=== PATIENT | female | born 1955 | race Caucasian/White ===

== ENCOUNTER 2017-05-24 08:22 | Outpatient (CLI) | payer OTHER ==
[~2017-05-24] VITALS: Ht 121.9 cm; Wt 69.4 kg
[~2017-05-24 08:22] MED LIST: DOLOGEN CAPLET1 EACH PO; MEDROL4 MG PO; PROVENTIL HFA6.7 GM IH; SINGULAIR10 MG PO
== END 2017-05-24 08:45 | disposition home or self-care (01) ==
LOC: OFIC 805 08:22
DX: H60.8X3 Other otitis externa, bilateral (principal); H93.13 Tinnitus, bilateral; H90.3 Sensorineural hearing loss, bilateral

== ENCOUNTER 2017-06-28 08:41 | Outpatient (CLI) | payer OTHER ==
[~2017-06-28] VITALS: Ht 121.9 cm; Wt 69.4 kg
== END 2017-06-28 09:00 | disposition home or self-care (01) ==
LOC: OFIC 805 08:41
DX: H60.8X3 Other otitis externa, bilateral (principal)

== ENCOUNTER 2018-05-02 07:45 | Outpatient (CLI) | payer OTHER ==
[~2018-05-02] VITALS: Ht 121.9 cm; Wt 69.4 kg
== END 2018-05-02 08:00 | disposition home or self-care (01) ==
LOC: OFIC 805 07:45
DX: H90.3 Sensorineural hearing loss, bilateral (principal); H93.13 Tinnitus, bilateral; H60.8X3 Other otitis externa, bilateral; H61.23 Impacted cerumen, bilateral

== ENCOUNTER 2018-05-30 09:38 | Outpatient (CLI) | payer OTHER ==
[~2018-05-30] VITALS: Ht 121.9 cm; Wt 68.0 kg
== END 2018-05-30 10:00 | disposition home or self-care (01) ==
LOC: OFIC 805 09:38
DX: H60.8X3 Other otitis externa, bilateral (principal)

== ENCOUNTER 2022-05-24 07:21 | Outpatient (CLI) | payer OTHER | END 2022-05-24 07:23 | disposition home or self-care (01) | LOC: NUCLEAR 07:21 | PROVIDERS: ATTEND Internal Medicine Hematology & Oncology | DX: C50.411 Malignant neoplasm of upper-outer quadrant of right female breast (principal); Z85.3 Personal history of malignant neoplasm of breast; R97.8 Other abnormal tumor markers | CPT/HCPCS: 78816; A9552 ==

== ENCOUNTER 2022-06-04 09:07 | Outpatient (CLI) | payer OTHER | END 2022-06-04 09:10 | disposition home or self-care (01) | LOC: SONOGRAMA 09:07 | PROVIDERS: ATTEND Pathology Anatomic Pathology | DX: C77.3 Secondary and unspecified malignant neoplasm of axilla and upper limb lymph nodes (principal); C50.411 Malignant neoplasm of upper-outer quadrant of right female breast ==

== ENCOUNTER 2022-07-02 07:40 | Outpatient (CLI) | payer OTHER | END 2022-07-02 07:48 | disposition home or self-care (01) | LOC: TOM 07:40 | PROVIDERS: ATTEND Orthopaedic Surgery | DX: D49.2 Neoplasm of unspecified behavior of bone, soft tissue, and skin (principal) ==